=== PATIENT | male | born 1975 | race Caucasian/White ===

== ENCOUNTER 2016-08-19 12:19 | Emergency (ER) | payer BC ==
[2016-08-19 13:10] VITALS: BP 137/86
--- NOTE | 2016-08-19 13:10 | UC ---
Abdominal Pain Male HPI - HPI Summary HPI Summary: Woken from sleep with LLQ pain at 4:30am, has been worsening since then. Normal BM about 10:30am, no blood in stool, no urinary symptoms, no vomiting. No hx of abdominal surgeries. - History of Current Complaint Chief Complaint: UCAbdominalPain Stated Complaint: ABD PAIN Time Seen by Provider: 08/19/16 12:27 Hx Obtained From: Patient Onset/Duration: Sudden Onset, Lasting Hours Timing: Constant Severity Initially: Moderate Severity Currently: Moderate Location: Discrete At: LLQ Radiates: No Character: Sharp Aggravating Factor(s):: Deep Breaths Alleviating Factor(s): Rest Associated Signs And Symptoms: Negative: Fever, Cough, Blood in Stool, Urinary Symptoms, Vomiting, Diarrhea - Allergies/Home Medications Allergies/Adverse Reactions: Allergies Allergy/AdvReac Type Severity Reaction Status Date / Time No Known Allergies Allergy Verified 08/19/16 12:38 Home Medications: Home Medications Ranitidine TAB (NF) [Zantac TAB (NF)] 1 tab DAILY 08/19/16 [History Confirmed ] PMH/Surg Hx/FS Hx/Imm Hx Previously Healthy: Yes - Surgical History Surgical History: None - Family History Known Family History: Negative: Blood Disorder - Social History Lives: With Family Alcohol Use: Daily Substance Use Type: None Smoking Status (MU): Never Smoked Tobacco - Immunization History Most Recent Influenza Vaccination: NONE Most Recent Tetanus Shot: UTD Most Recent Pneumonia Vaccination: N/A Review of Systems Constitutional: Negative Skin: Negative Eyes: Negative ENT: Negative Respiratory: Negative Cardiovascular: Negative Gastrointestinal: Abdominal Pain Genitourinary: Negative Motor: Negative Neurovascular: Negative Musculoskeletal: Negative Neurological: Negative Psychological: Negative All Other Systems Reviewed And Are Negative: Yes Physical Exam Triage Information Reviewed: Yes Appearance: Well-Appearing, Pain Distress - with movement, palpation Vital Signs: Initial Vital Signs Temp 98.3 F 08/19/16 12:40 Pulse 83 08/19/16 12:40 Resp 18 08/19/16 12:40 BP 124/92 08/19/16 12:40 Pulse Ox 100 08/19/16 12:40 Vital Signs Reviewed: Yes Eye Exam: Normal Eyes: Positive: Conjunctiva Clear ENT Exam: Normal ENT: Positive: Normal ENT inspection, Hearing grossly normal, Pharynx normal, TMs normal Dental Exam: Normal Neck exam: Normal Neck: Positive: Supple, Nontender, No Lymphadenopathy Respiratory Exam: Normal Respiratory: Positive: Chest non-tender, Lungs clear, Normal breath sounds, No respiratory distress, No accessory muscle use Cardiovascular Exam: Normal Cardiovascular: Positive: RRR, No Murmur Abdomen Description: Positive: Soft, Guarding, Peritoneal Signs - painful with deep breathing, rebound tenderness LLQ. Negative: Nontender - significant LLQ tenderness, CVA Tenderness (R), CVA Tenderness (L) Bowel Sounds: Positive: Present Musculoskeletal Exam: Normal Musculoskeletal: Positive: Strength Intact Neurological Exam: Normal Neurological: Positive: Alert Psychological Exam: Normal Skin Exam: Normal Abd Pain Male Course/Dx - Differential Dx/Clinical Impression Provider Diagnoses: LLQ abdominal pain. Elevated blood pressure due to pain - Physician Notification/Consults Discussed Patient Care With: Edna Otero NP Time Discussed With Above Provider: 13:05 Discharge - Discharge Plan Condition: Stable Disposition: AGAINST MEDICAL ADVICE
== END 2016-08-19 13:11 | disposition left against medical advice (07) ==
LOC: UCCORT 12:19
DX: R10.32 Left lower quadrant pain (principal); R03.0 Elevated blood-pressure reading, without diagnosis of hypertension
CPT/HCPCS: 81003; 99203; G0463

== ENCOUNTER 2017-02-03 19:04 | Emergency (ER) | payer BC ==
--- NOTE | 2017-02-03 19:07 | UC ---
Abdominal Pain Male HPI - HPI Summary HPI Summary: 41 YEAR OLD MALE WITH A HISTORY OF DIVERTICULITIS PRESENTS WITH SEVERE LLQ PAIN. I WILL SEND HIM TO THE ER. - History of Current Complaint Stated Complaint: ABDOMINAL PAIN Time Seen by Provider: 02/03/17 19:07 Hx Obtained From: Patient Onset/Duration: Sudden Onset Severity Initially: Moderate Severity Currently: Moderate Pain Scale Used: 0-10 Numeric - 5 Location: Discrete At: LLQ - Allergies/Home Medications Allergies/Adverse Reactions: Allergies Allergy/AdvReac Type Severity Reaction Status Date / Time No Known Allergies Allergy Verified 02/03/17 19:17 PMH/Surg Hx/FS Hx/Imm Hx Previously Healthy: Yes - Surgical History Surgical History: None - Family History Known Family History: Negative: Blood Disorder - Social History Alcohol Use: Daily Substance Use Type: None Smoking Status (MU): Never Smoked Tobacco - Immunization History Most Recent Influenza Vaccination: NONE Most Recent Tetanus Shot: UTD Most Recent Pneumonia Vaccination: N/A Review of Systems Constitutional: Negative Skin: Negative Eyes: Negative ENT: Negative Respiratory: Negative Cardiovascular: Negative Gastrointestinal: Other - LLQ PAIN Genitourinary: Negative Motor: Negative Neurovascular: Negative Musculoskeletal: Negative Neurological: Negative Psychological: Negative All Other Systems Reviewed And Are Negative: Yes Physical Exam Triage Information Reviewed: Yes Eye Exam: Normal ENT Exam: Normal Dental Exam: Normal Neck exam: Normal Neck: Positive: 1 Respiratory Exam: Normal Cardiovascular Exam: Normal Abdomen Description: Positive: Other: - LLQ PAIN Musculoskeletal Exam: Normal Neurological Exam: Normal Psychological Exam: Normal Skin Exam: Normal Abd Pain Male Course/Dx - Differential Dx/Clinical Impression Provider Diagnoses: LLQ PAIN Discharge - Discharge Plan Condition: Stable Disposition: HOME Patient Education Materials: Acute Abdominal Pain (ED) Referrals: No Primary Care Phys,NOPCP [Medical Doctor] - Additional Instructions: PATIENT SUGGESTED TO GO TO ER FOR SEVERE LLQ PAIN.
[2017-02-03 19:17] VITALS: BP 109/68
== END 2017-02-03 19:26 | disposition home or self-care (01) ==
LOC: UCCORT 19:04
DX: R10.32 Left lower quadrant pain (principal)
CPT/HCPCS: 99212; G0463